=== PATIENT | male | born 1985 | race African-American/Black ===

== ENCOUNTER 2021-07-06 11:59 | Emergency (ER) | payer MEDICAID ==
[~2021-07-06] VITALS: Ht 190.5 cm; Wt 91.0 kg
[2021-07-06] MEDS ORDERED: KETOROLAC 30MG/ML VIAL IM ONE (12:15)
[2021-07-06 12:29] VITALS: BP 136/94
[2021-07-06] MEDS ORDERED: TRAM50TA94 PO (14:09)
[2021-07-06] MEDS ORDERED: MED4 MT (14:09)
== END 2021-07-06 14:18 | disposition home or self-care (01) ==
LOC: ER 11:59
DX: M23.8X1 Other internal derangements of right knee (principal); M54.41 Lumbago with sciatica, right side
CPT/HCPCS: 72100; 73562; 96372; 99284; J1885